=== PATIENT | male | born 1970 | race Caucasian/White ===

== ENCOUNTER 2021-09-22 09:12 | Emergency (ER) | payer BC ==
[2021-09-22 10:13] LABS: HEMOGLOBIN 15.5 gm/dl (14.0-17.5); RED BLOOD COUNT 4.99 M/UL (4.20-5.50); WHITE BLOOD COUNT 5.6 K/UL (4.5-11.0)
[2021-09-22 10:42] LABS: BUN/CREATININE RATIO 14 (0-10)
[2021-09-22] MEDS ORDERED: ACYCLOVIR800 MG PO (10:54)
[2021-09-22] MEDS ORDERED: PREDNISONE 50 M50 MG PO (10:54)
== END 2021-09-22 11:34 | disposition home or self-care (01) ==
LOC: ER1 09:12
PROVIDERS: Emergency Medicine
DX: G51.0 Bell's palsy (principal); I10 Essential (primary) hypertension; E11.9 Type 2 diabetes mellitus without complications; R29.701 NIHSS score 1
CPT/HCPCS: 70450; 71045; 80053; 82550; 82553; 83874; 84484; 85025; 93005; 99284

== ENCOUNTER 2021-09-30 19:58 | Emergency (ER) | payer BC ==
[~2021-09-30 19:58] MED LIST: ACYCLOVIR800 MG PO; PREDNISONE 50 M50 MG PO
[2021-09-30 20:53] LABS: HEMOGLOBIN 16.6 gm/dl (14.0-17.5); RED BLOOD COUNT 5.38 M/UL (4.20-5.50); WHITE BLOOD COUNT 8.9 K/UL (4.5-11.0)
[2021-09-30 21:11] LABS: BUN/CREATININE RATIO 19 (0-10)
== END 2021-10-01 | disposition home or self-care (01) ==
LOC: ER1 19:58
PROVIDERS: Family Medicine
DX: G51.0 Bell's palsy (principal); I10 Essential (primary) hypertension; E78.5 Hyperlipidemia, unspecified
CPT/HCPCS: 70486; 80053; 85025; 85652; 86140; 93005; 99284